=== PATIENT | male | born 1955 | race Caucasian/White ===

== ENCOUNTER 2020-05-16 15:03 | Emergency (ER) | payer OTHER ==
[~2020-05-16] VITALS: Ht 185.4 cm; Wt 129.3 kg
[2020-05-16 15:17] VITALS: Ht 185.4 cm; Wt 129.3 kg
[2020-05-16 15:53] LABS: BASOPHIL % 0.3 % (0-2); PLATELET COUNT 212 x10^3mcL (130-400); RED CELL DISTRIBUTION WIDTH 14.8 % (11.5-14.5)
[2020-05-16 16:02] LABS: CALCIUM 9.3 mg/dL (8.5-10.1); CHLORIDE SERUM 103 mmol/L (98-107); CREATININE SERUM 1.1 mg/dL (0.7-1.3); GFR1 > 60 mL/min; GLUCOSE SERUM 108 mg/dL (74-106); POTASSIUM SERUM 4.2 mmol/L (3.5-5.1); SODIUM SERUM 140 mmol/L (136-145)
[2020-05-16 16:07] LABS: ALBUMIN 3.7 g/dL (3.4-5.0); ALKALINE PHOSPHATASE 116 U/L (46-116); ALT/SGPT 19 U/L (16-63); AST/SGOT 20 U/L (15-37); BILIRUBIN TOTAL 0.3 mg/dL (0.20-1.00); TOTAL PROTEIN, SERUM 7.8 g/dL (6.4-8.2)
[2020-05-16 17:33] LABS: UA SPECIFIC GRAVITY >=1.030 (1.005-1.035); microscopic required? YES; urine erythrocyte 3+ (NEGATIVE)
[2020-05-16 20:32] VITALS: BP 136/73
== END 2020-05-16 20:32 | disposition short-term general hospital (02) ==
LOC: ED 15:03
PROVIDERS: Specialist
DX: N20.0 Calculus of kidney (principal); K46.0 Unspecified abdominal hernia with obstruction, without gangrene; I10 Essential (primary) hypertension
CPT/HCPCS: J0295; J1885; J2270; J2405; J7030